=== PATIENT | male | born 1935 | race Caucasian/White ===

== ENCOUNTER 2017-07-27 11:26 | Emergency (ER) | payer OTHER, MEDICAID ==
[~2017-07-27] VITALS: Ht 167.6 cm; Wt 81.2 kg
[2017-07-27 11:42] VITALS: BP_SYST 154
[2017-07-27 12:52] VITALS: BP_SYST 154
== END 2017-07-27 12:51 | disposition home or self-care (01) ==
LOC: SED 11:26
DX: S69.92XA Unspecified injury of left wrist, hand and finger(s), initial encounter (principal); R03.0 Elevated blood-pressure reading, without diagnosis of hypertension; W23.0XXA Caught, crushed, jammed, or pinched between moving objects, initial encounter; Y93.89 Activity, other specified; Y92.89 Other specified places as the place of occurrence of the external cause; Y99.8 Other external cause status
CPT/HCPCS: 73140-TC; 99284